=== PATIENT | female | born 1955 | race Caucasian/White ===

== ENCOUNTER → 2017-01-03 | Outpatient (CLI) | payer MEDICARE ==
[~2017-01-03] MED LIST: CLARITIN10 MG PO; DULOXETINE HCL60 MG PO; ELAVIL 50 MG TA50 MG PO; FLEXERIL 10 MG10 MG PO; FLONASE 0.05% N16 GM; HYDROXYZINE HCL25 MG PO; MONTELUKAST SOD10 MG PO; PROAIR HFA8.5 GM INH; TOPAMAX50 MG PO; VITAMIN D5000 UNIT PO
[2017-01-03 09:09] LABS: HEMOGLOBIN 12.7 gm/dl (12.3-15.3); RED BLOOD COUNT 4.16 M/UL (4.00-5.10); WHITE BLOOD COUNT 4.8 K/UL (4.5-11.0)
[2017-01-03 10:06] LABS: BUN/CREATININE RATIO 15 (0-10)
== END ==
LOC: LAB 08:11
PROVIDERS: Family Medicine
DX: Z13.220 Encounter for screening for lipoid disorders (principal); D63.1 Anemia in chronic kidney disease; N18.9 Chronic kidney disease, unspecified; E53.8 Deficiency of other specified B group vitamins; M25.532 Pain in left wrist; M79.671 Pain in right foot
CPT/HCPCS: 36415; 73110; 73630; 80053; 80061; 82607; 82728; 83540; 83550; 85025

== ENCOUNTER → 2017-01-10 | Outpatient (CLI) | payer MEDICARE | LOC: HEART 5 13:24 | DX: I73.9 Peripheral vascular disease, unspecified (principal) ==

== ENCOUNTER 2020-07-18 15:46 | Emergency (ER) | payer MEDICARE, SELFPAY ==
[~2020-07-18 15:46] MED LIST changes: +CLOBETASOL 0.0560 GM TP; +DIFLUCAN 100 M100 MG PO; +DUOBRII 0.01%-100 GM TP; +IBUPROFEN200 M1 PO; +IBUPROFEN600 MG PO; +INVANZ 1 GM VIAL1 GM IV; +KENALOG IN ORABA5 GM TOP; +PRILOSEC OTC20 MG PO; +REXALTI PO; +SERTRALINE HCL100 MG PO; +VIT B12 PO; +VITAMIN D31250 MCG PO; -VITAMIN D5000 UNIT PO; +ZYRTEC10 MG PO
[2020-07-18 20:22] LABS: HEMOGLOBIN 12.6 gm/dl (12.3-15.3); RED BLOOD COUNT 3.97 M/UL (4.00-5.10); WHITE BLOOD COUNT 6.8 K/UL (4.5-11.0)
[2020-07-18 20:38] LABS: BUN/CREATININE RATIO 12 (0-10)
[2020-07-20] MEDS ORDERED: OMEPRAZOLE20 M1 PO (06:51)
[2020-07-20] MEDS ORDERED: REXALTI PO (06:53)
[2020-07-20] MEDS ORDERED: SINGULAIR10 MG PO (06:53)
[2020-07-20] MEDS ORDERED: ZOLOFT100 MG PO (06:54)
[2020-07-20] MEDS ORDERED: NORCO 5-325 TA1 EACH PO (09:45)
[2020-08-03] MEDS ORDERED: HYDROXYZINE HCL25 MG PO (08:26)
[2020-08-03] MEDS ORDERED: CYMBALTA60 MG PO (08:26)
[2020-08-03] MEDS ORDERED: ELAVIL 50 MG TA50 MG PO (08:26)
[2020-08-03] MEDS ORDERED: FLONASE 0.05% N16 GM (08:28)
[2020-08-03] MEDS ORDERED: FLEXERIL PO (08:28)
[2020-08-03] MEDS ORDERED: IBUPROFEN800 MG PO (08:29)
[2020-08-03] MEDS ORDERED: PRILOSEC OTC20 MG PO (08:30)
[2020-08-03] MEDS ORDERED: SINGULAIR10 MG PO (08:31)
[2020-08-03] MEDS ORDERED: REXALTI PO (08:31)
[2020-08-03] MEDS ORDERED: ZOLOFT100 MG PO (08:32)
[2020-08-03] MEDS ORDERED: ZYRTEC10 MG PO (08:32)
[2020-08-03] MEDS ORDERED: VIT B12 SL (08:33)
[2020-08-03] MEDS ORDERED: VITAMIN D21250 MCG PO (08:33)
[2020-08-03] MEDS ORDERED: CLOBETASOL OINT VG (08:34)
[2020-08-03] MEDS ORDERED: HALOBETASOL TP (08:35)
[2020-08-03] MEDS ORDERED: TRIAMCINOLONE OINT TP (08:36)
== END 2020-07-18 22:37 | disposition home or self-care (01) ==
LOC: ER1 15:46
PROVIDERS: Physician Assistant Medical
DX: Z48.817 Encounter for surgical aftercare following surgery on the skin and subcutaneous tissue (principal); J45.909 Unspecified asthma, uncomplicated; Z88.1 Allergy status to other antibiotic agents; Z88.0 Allergy status to penicillin; Z88.2 Allergy status to sulfonamides; Z88.8 Allergy status to other drugs, medicaments and biological substances; Z91.041 Radiographic dye allergy status; Z98.890 Other specified postprocedural states
CPT/HCPCS: 73090; 80053; 85025; 85652; 86140; 99283

== ENCOUNTER → 2020-07-20 | Day surgery (SDC) | payer MEDICARE, SELFPAY ==
[~2020-07-20] MED LIST changes: +CLOBETASOL OINT VG; +CYMBALTA60 MG PO; +FLEXERIL PO; +HALOBETASOL TP; +HYDROCODON-ACE1 EAC2 PO; +IBUPROFEN800 MG PO; +NORCO 5-325 TA1 EACH PO; +OMEPRAZOLE20 M1 PO; +SINGULAIR10 MG PO; +TRIAMCINOLONE OINT TP; +VIT B12 SL; +VITAMIN D21250 MCG PO; +ZOLOFT100 MG PO
== END | disposition home or self-care (01) ==
LOC: OR 06:01
PROVIDERS: Orthopaedic Surgery
PROC: 0PBJ0ZZ Excision of Left Radius, Open Approach (ICD-10-PCS; principal; 2020-07-20 07:30)
DX: T84.613A Infection and inflammatory reaction due to internal fixation device of left radius, initial encounter (principal); I25.10 Atherosclerotic heart disease of native coronary artery without angina pectoris; E66.01 Morbid (severe) obesity due to excess calories; F41.8 Other specified anxiety disorders; Z88.0 Allergy status to penicillin; Z88.2 Allergy status to sulfonamides; Z88.6 Allergy status to analgesic agent; Z91.041 Radiographic dye allergy status; Z88.7 Allergy status to serum and vaccine; Z79.899 Other long term (current) drug therapy; Z20.828 Contact with and (suspected) exposure to other viral communicable diseases
CPT/HCPCS: 82962; 87070; 87077; 87186; 87205; C1713; J1170; J2001; J2250; J2704; J3010; J3260; J7030; J7120

== ENCOUNTER → 2020-08-03 | Day surgery (SDC) | payer MEDICARE, SELFPAY | END | disposition home or self-care (01) | LOC: OR 06:49 | PROVIDERS: Orthopaedic Surgery | PROC: 0RPP04Z Removal of Internal Fixation Device from Left Wrist Joint, Open Approach (ICD-10-PCS; principal; 2020-08-03 07:30) | DX: T84.613A Infection and inflammatory reaction due to internal fixation device of left radius, initial encounter (principal); J45.909 Unspecified asthma, uncomplicated; F41.8 Other specified anxiety disorders; Z88.0 Allergy status to penicillin; Z88.2 Allergy status to sulfonamides; Z88.1 Allergy status to other antibiotic agents; Z88.6 Allergy status to analgesic agent; Z79.899 Other long term (current) drug therapy; Z20.822 Contact with and (suspected) exposure to COVID-19 | CPT/HCPCS: 73110; 76000; 87070; 87077; 87186; 87205; C1713; J0171; J0690; J1100; J1170; J2001; J2370; J2704; J2795; J3260; J3370; J7120 ==

== ENCOUNTER 2020-08-29 17:33 | Emergency (ER) | payer MEDICARE, SELFPAY ==
[~2020-08-29 17:33] MED LIST changes: -HYDROCODON-ACE1 EAC2 PO
[2020-08-29 21:22] LABS: HEMOGLOBIN 13.1 gm/dl (12.3-15.3); RED BLOOD COUNT 4.06 M/UL (4.00-5.10); WHITE BLOOD COUNT 8.1 K/UL (4.5-11.0)
== END 2020-08-29 23:01 | disposition home or self-care (01) ==
LOC: ER1 17:33
PROVIDERS: Emergency Medicine
DX: T81.41XA Infection following a procedure, superficial incisional surgical site, initial encounter (principal); L08.9 Local infection of the skin and subcutaneous tissue, unspecified; L76.32 Postprocedural hematoma of skin and subcutaneous tissue following other procedure; Z88.0 Allergy status to penicillin; Z88.2 Allergy status to sulfonamides; Z88.6 Allergy status to analgesic agent; Z98.890 Other specified postprocedural states
CPT/HCPCS: 36415; 80053; 85025; 85652; 86140; 99283

== ENCOUNTER → 2020-09-15 | Outpatient (CLI) | payer MEDICARE, SELFPAY ==
[~2020-09-15] MED LIST changes: +HYDROCODON-ACE1 EAC2 PO
== END ==
LOC: WCC 13:15
DX: S61.512A Laceration without foreign body of left wrist, initial encounter (principal); L08.9 Local infection of the skin and subcutaneous tissue, unspecified; N18.6 End stage renal disease; D64.9 Anemia, unspecified; J45.909 Unspecified asthma, uncomplicated; Z88.0 Allergy status to penicillin; Z88.2 Allergy status to sulfonamides
CPT/HCPCS: 97608; G0463

== ENCOUNTER → 2020-09-16 | Outpatient (CLI) | payer MEDICARE, SELFPAY | LOC: OPSV 06:35 | DX: T80.218A Other infection due to central venous catheter, initial encounter (principal); M25.832 Other specified joint disorders, left wrist; Z88.0 Allergy status to penicillin; Z88.2 Allergy status to sulfonamides ==

== ENCOUNTER → 2020-09-19 | Outpatient (CLI) | payer MEDICARE, SELFPAY | LOC: WCC 07:56 | DX: T81.31XA Disruption of external operation (surgical) wound, not elsewhere classified, initial encounter (principal); T81.49XA Infection following a procedure, other surgical site, initial encounter; E66.01 Morbid (severe) obesity due to excess calories; N18.6 End stage renal disease; Z91.81 History of falling | CPT/HCPCS: 97605 ==

== ENCOUNTER → 2020-09-22 | Outpatient (CLI) | payer MEDICARE, SELFPAY | LOC: WCC 13:26 | DX: T81.31XA Disruption of external operation (surgical) wound, not elsewhere classified, initial encounter (principal); J45.909 Unspecified asthma, uncomplicated; N18.6 End stage renal disease; E66.01 Morbid (severe) obesity due to excess calories; Z91.81 History of falling | CPT/HCPCS: 87070; 87205 ==

== ENCOUNTER → 2020-09-29 | Outpatient (CLI) | payer MEDICARE, SELFPAY | LOC: WCC 08:30 | PROC: 0KBB0ZZ Excision of Left Lower Arm and Wrist Muscle, Open Approach (ICD-10-PCS; principal; 2020-09-29) | DX: T81.31XA Disruption of external operation (surgical) wound, not elsewhere classified, initial encounter (principal); T81.42XA Infection following a procedure, deep incisional surgical site, initial encounter; I96 Gangrene, not elsewhere classified; N18.6 End stage renal disease; D63.1 Anemia in chronic kidney disease; J45.909 Unspecified asthma, uncomplicated; M19.90 Unspecified osteoarthritis, unspecified site; M86.9 Osteomyelitis, unspecified; E66.01 Morbid (severe) obesity due to excess calories; Z68.41 Body mass index [BMI] 40.0-44.9, adult; Z87.81 Personal history of (healed) traumatic fracture; Z79.899 Other long term (current) drug therapy; Z91.81 History of falling; Z88.0 Allergy status to penicillin; Z88.2 Allergy status to sulfonamides; Z88.8 Allergy status to other drugs, medicaments and biological substances; Z91.041 Radiographic dye allergy status; Y83.8 Other surgical procedures as the cause of abnormal reaction of the patient, or of later complication, without mention of misadventure at the time of the procedure; Z92.3 Personal history of irradiation | CPT/HCPCS: G0463 ==

== ENCOUNTER → 2020-09-30 | Outpatient (CLI) | payer MEDICARE, SELFPAY | LOC: WCC 09:27 | DX: T81.31XA Disruption of external operation (surgical) wound, not elsewhere classified, initial encounter (principal); T81.49XA Infection following a procedure, other surgical site, initial encounter; E66.01 Morbid (severe) obesity due to excess calories; N18.6 End stage renal disease; Z91.81 History of falling | CPT/HCPCS: 97608 ==

== ENCOUNTER → 2020-10-03 | Outpatient (CLI) | payer MEDICARE, SELFPAY | LOC: WCC 14:09 | DX: T81.31XA Disruption of external operation (surgical) wound, not elsewhere classified, initial encounter (principal); T81.49XA Infection following a procedure, other surgical site, initial encounter; N18.6 End stage renal disease; E66.01 Morbid (severe) obesity due to excess calories; Z91.81 History of falling | CPT/HCPCS: 97605 ==

== ENCOUNTER → 2020-10-06 | Outpatient (CLI) | payer MEDICARE, SELFPAY, OTHER | LOC: WCC 14:00 | PROC: 0KBB0ZZ Excision of Left Lower Arm and Wrist Muscle, Open Approach (ICD-10-PCS; principal; 2020-10-06) | DX: T81.31XA Disruption of external operation (surgical) wound, not elsewhere classified, initial encounter (principal); T81.49XA Infection following a procedure, other surgical site, initial encounter; I96 Gangrene, not elsewhere classified; D63.1 Anemia in chronic kidney disease; J45.909 Unspecified asthma, uncomplicated; N18.6 End stage renal disease; E66.01 Morbid (severe) obesity due to excess calories; Z68.41 Body mass index [BMI] 40.0-44.9, adult; Z91.81 History of falling; Z88.0 Allergy status to penicillin; Z88.2 Allergy status to sulfonamides; Z88.8 Allergy status to other drugs, medicaments and biological substances; Z91.041 Radiographic dye allergy status; Z79.899 Other long term (current) drug therapy; Y83.8 Other surgical procedures as the cause of abnormal reaction of the patient, or of later complication, without mention of misadventure at the time of the procedure | CPT/HCPCS: 97605 ==

== ENCOUNTER → 2020-10-10 | Outpatient (CLI) | payer MEDICARE, SELFPAY | LOC: WCC 13:23 | DX: T81.31XA Disruption of external operation (surgical) wound, not elsewhere classified, initial encounter (principal); Y84.9 Medical procedure, unspecified as the cause of abnormal reaction of the patient, or of later complication, without mention of misadventure at the time of the procedure | CPT/HCPCS: 97605 ==

== ENCOUNTER → 2020-10-13 | Outpatient (CLI) | payer MEDICARE, SELFPAY, OTHER | LOC: WCC 13:53 | PROC: 0KBB0ZZ Excision of Left Lower Arm and Wrist Muscle, Open Approach (ICD-10-PCS; principal; 2020-10-13) | DX: T81.31XA Disruption of external operation (surgical) wound, not elsewhere classified, initial encounter (principal); T81.49XA Infection following a procedure, other surgical site, initial encounter; I96 Gangrene, not elsewhere classified; N18.6 End stage renal disease; D63.1 Anemia in chronic kidney disease; J45.909 Unspecified asthma, uncomplicated; M19.90 Unspecified osteoarthritis, unspecified site; E66.01 Morbid (severe) obesity due to excess calories; Z68.42 Body mass index [BMI] 45.0-49.9, adult; Z79.899 Other long term (current) drug therapy; Z88.0 Allergy status to penicillin; Z88.2 Allergy status to sulfonamides; Z88.8 Allergy status to other drugs, medicaments and biological substances; Z91.041 Radiographic dye allergy status; Y83.8 Other surgical procedures as the cause of abnormal reaction of the patient, or of later complication, without mention of misadventure at the time of the procedure | CPT/HCPCS: A6212 ==

== ENCOUNTER → 2020-10-17 | Outpatient (CLI) | payer MEDICARE, SELFPAY ==
[2020-10-17 13:49] LABS: HEMOGLOBIN 13.1 gm/dl (12.3-15.3); RED BLOOD COUNT 4.16 M/UL (4.00-5.10); WHITE BLOOD COUNT 7.8 K/UL (4.5-11.0)
== END ==
LOC: OPSV2 11:59
PROVIDERS: Orthopaedic Surgery
DX: Z01.818 Encounter for other preprocedural examination (principal); M86.9 Osteomyelitis, unspecified; T81.30XA Disruption of wound, unspecified, initial encounter; Z20.822 Contact with and (suspected) exposure to COVID-19
CPT/HCPCS: 36415; 80048; 85025; 85652; 86140; 93005; U0003

== ENCOUNTER 2020-10-19 07:39 | Day surgery (SDC) | payer MEDICARE, SELFPAY ==
[~2020-10-19] VITALS: Ht 160 cm; Wt 105.7 kg
[~2020-10-19 07:39] MED LIST changes: -HYDROCODON-ACE1 EAC2 PO
[2020-10-19] MEDS ORDERED: HYDROCODON-ACE1 EAC2 PO (14:16)
--- NOTE | 2020-10-19 17:48 | NUR ---
PATIENT HAVING DIFFICULTY WITH ANBULATON, USING WALKER. AT BEDSIDE.
[2020-10-20 02:32] LABS: HEMOGLOBIN 11.9 gm/dl (12.3-15.3); RED BLOOD COUNT 3.83 M/UL (4.00-5.10)
[2020-10-20 02:33] LABS: WHITE BLOOD COUNT 5.8 K/UL (4.5-11.0)
[2020-10-20 02:52] LABS: BUN/CREATININE RATIO 14 (0-10)
== END 2020-10-20 13:30 | disposition home health service (06) ==
LOC: M/S 07:39 → OR 07:39 → M/S 15:03 → OR 10-20 13:30
PROVIDERS: Orthopaedic Surgery
DX: S61.502A Unspecified open wound of left wrist, initial encounter (principal); M86.632 Other chronic osteomyelitis, left radius and ulna; T85.79XA Infection and inflammatory reaction due to other internal prosthetic devices, implants and grafts, initial encounter; J45.909 Unspecified asthma, uncomplicated; N28.9 Disorder of kidney and ureter, unspecified; X58.XXXA Exposure to other specified factors, initial encounter
CPT/HCPCS: 80048; 85025; 87070; J0592; J1100; J1335; J2001; J2405; J2704; J2795; J3010; J7120; Q0177

== ENCOUNTER → 2020-11-10 | Outpatient (CLI) | payer MEDICARE ==
[~2020-11-10] MED LIST changes: +HYDROCODON-ACE1 EAC2 PO
== END ==
LOC: OPSV 10:21
DX: M86.642 Other chronic osteomyelitis, left hand (principal); Z46.82 Encounter for fitting and adjustment of non-vascular catheter
CPT/HCPCS: G0463

== ENCOUNTER → 2021-01-05 | Outpatient (CLI) | payer MEDICARE | LOC: LAB 11:51 | PROVIDERS: Family Medicine | DX: E55.9 Vitamin D deficiency, unspecified (principal); E53.8 Deficiency of other specified B group vitamins; N18.30 Chronic kidney disease, stage 3 unspecified | CPT/HCPCS: 36415; 80053; 82607; 83735; 84100 ==

== ENCOUNTER → 2021-01-20 | Outpatient (CLI) | payer MEDICARE ==
[~2021-01-20] MED LIST changes: +ASPIRIN CHEWABL81 MG PO; +DECADRON6 MG PO; +IBU800 MG PO
[2021-01-20 10:53] LABS: HEMOGLOBIN 14.6 gm/dl (12.3-15.3); RED BLOOD COUNT 4.62 M/UL (4.00-5.10); WHITE BLOOD COUNT 5.5 K/UL (4.5-11.0)
[2021-01-24 23:10] LABS: TOTAL (AMI+NOR) 65 ng/mL (80-200)
== END ==
LOC: LAB 09:35
PROVIDERS: Psychiatry & Neurology Psychiatry
DX: F33.1 Major depressive disorder, recurrent, moderate (principal); F41.9 Anxiety disorder, unspecified
CPT/HCPCS: 36415; 80076; 85027; 93005; G0480

== ENCOUNTER → 2021-02-01 | Outpatient (CLI) | payer MEDICARE, OTHER ==
[~2021-02-01] VITALS: Ht 157.5 cm; Wt 106.6 kg
== END ==
LOC: OPSV 08:10
DX: M81.0 Age-related osteoporosis without current pathological fracture (principal)
CPT/HCPCS: 96372

== ENCOUNTER → 2021-02-13 | Day surgery (SDC) | payer MEDICARE, OTHER | END | disposition home or self-care (01) | LOC: OR 06:10 | DX: D12.5 Benign neoplasm of sigmoid colon (principal); K29.70 Gastritis, unspecified, without bleeding; D50.9 Iron deficiency anemia, unspecified; N18.30 Chronic kidney disease, stage 3 unspecified; G43.009 Migraine without aura, not intractable, without status migrainosus; J45.991 Cough variant asthma; F32.9 Major depressive disorder, single episode, unspecified; F41.9 Anxiety disorder, unspecified; K21.9 Gastro-esophageal reflux disease without esophagitis; G47.33 Obstructive sleep apnea (adult) (pediatric); M81.0 Age-related osteoporosis without current pathological fracture; I73.9 Peripheral vascular disease, unspecified; Z88.6 Allergy status to analgesic agent; Z88.5 Allergy status to narcotic agent; Z88.0 Allergy status to penicillin; Z88.1 Allergy status to other antibiotic agents; Z88.2 Allergy status to sulfonamides; Z88.8 Allergy status to other drugs, medicaments and biological substances; Z20.822 Contact with and (suspected) exposure to COVID-19 | CPT/HCPCS: J2704; J7120 ==

== ENCOUNTER → 2021-02-14 | Outpatient (CLI) | payer MEDICARE ==
[2021-02-14 12:27] LABS: HEMOGLOBIN 13.8 gm/dl (12.3-15.3); RED BLOOD COUNT 4.37 M/UL (4.00-5.10); WHITE BLOOD COUNT 6.3 K/UL (4.5-11.0)
== END ==
LOC: LAB 11:06
PROVIDERS: Orthopaedic Surgery
DX: T85.79XA Infection and inflammatory reaction due to other internal prosthetic devices, implants and grafts, initial encounter (principal)
CPT/HCPCS: 36415; 85027; 85652; 86140

== ENCOUNTER → 2021-02-20 | Outpatient (CLI) | payer MEDICARE, OTHER | LOC: MAMO 02-13 15:00 | DX: Z12.31 Encounter for screening mammogram for malignant neoplasm of breast (principal) | CPT/HCPCS: 77063; 77067 ==

== ENCOUNTER → 2021-02-21 | Outpatient (CLI) | payer MEDICARE, OTHER | LOC: KOH-I 10:19 | DX: M25.571 Pain in right ankle and joints of right foot (principal) | CPT/HCPCS: 73610 ==

== ENCOUNTER → 2021-03-08 | Outpatient (CLI) | payer MEDICARE, OTHER | LOC: KOH-I 02-27 10:30 | DX: S82.54XA Nondisplaced fracture of medial malleolus of right tibia, initial encounter for closed fracture (principal) | CPT/HCPCS: 73700 ==

== ENCOUNTER → 2021-03-29 | Outpatient (CLI) | payer MEDICARE ==
[~2021-03-29] MED LIST changes: -ASPIRIN CHEWABL81 MG PO; -DECADRON6 MG PO
== END ==
LOC: OPSV 12:02
DX: M81.0 Age-related osteoporosis without current pathological fracture (principal)
CPT/HCPCS: G0463

== ENCOUNTER 2021-04-11 20:48 | Emergency (ER) | payer MEDICARE, OTHER ==
[2021-04-11 21:46] LABS: HEMOGLOBIN 15.9 gm/dl (12.3-15.3); RED BLOOD COUNT 5.09 M/UL (4.00-5.10); WHITE BLOOD COUNT 5.3 K/UL (4.5-11.0)
[2021-04-12] MEDS ORDERED: DECADRON6 MG PO (04:53)
[2021-04-12] MEDS ORDERED: ASPIRIN CHEWABL81 MG PO (04:53)
== END 2021-04-12 05:20 | disposition home or self-care (01) ==
LOC: ER1 20:48
PROVIDERS: Student in an Organized Health Care Education/Training Program
DX: U07.1 COVID-19 (principal); J12.82 Pneumonia due to coronavirus disease 2019; Z23 Encounter for immunization
CPT/HCPCS: 71045; 80053; 81001; 82550; 82553; 83605; 83735; 83874; 84100; 84484; 85025; 85379; 85652; 86140; 87040; 87086; 93005; 96374; 99285; J1956; M0243; Q9967; U0002

== ENCOUNTER 2021-05-01 20:07 | Observation (INO) | payer MEDICARE, OTHER ==
[~2021-05-01] VITALS: Ht 157.5 cm; Wt 103.9 kg
[~2021-05-01 20:07] MED LIST changes: -OMNICEF 300 MG300 MG PO
[2021-05-01 21:40] LABS: HEMOGLOBIN 14.3 gm/dl (12.3-15.3); RED BLOOD COUNT 4.58 M/UL (4.00-5.10)
[2021-05-01 21:44] LABS: WHITE BLOOD COUNT 8.2 K/UL (4.5-11.0)
--- NOTE | 2021-05-02 21:15 | NUR ---
PULLED PTS MEDS EARLY GETTING NEW ADMIT
[2021-05-03] MEDS ORDERED: OMNICEF 300 MG300 MG PO (10:33)
== END 2021-05-03 17:50 | disposition home or self-care (01) ==
LOC: ER1 20:07 → MED SURG 4 22:26 → CDU 22:26 → MED SURG 4 05-02 00:35
PROVIDERS: Internal Medicine; Physician Assistant Medical; ADMIT Internal Medicine
DX: J15.9 Unspecified bacterial pneumonia (principal); U09.9 Post COVID-19 condition, unspecified; E86.0 Dehydration; Z98.84 Bariatric surgery status; E66.9 Obesity, unspecified; I95.1 Orthostatic hypotension; Z20.822 Contact with and (suspected) exposure to COVID-19
CPT/HCPCS: 36415; 71045; 71250; 80053; 82533; 82550; 82553; 82728; 83874; 84439; 84443; 84484; 85025; 86140; 93005; 96374; 96375; 96376; 99285; G0378; J0696; J2405; J7030; U0002

== ENCOUNTER → 2021-05-01 | Outpatient (CLI) | payer MEDICARE ==
[~2021-05-01] MED LIST changes: +ASPIRIN CHEWABL81 MG PO; +DECADRON6 MG PO; +OMNICEF 300 MG300 MG PO
[2021-05-01 10:05] LABS: RED BLOOD COUNT 4.52 M/UL (4.00-5.10); WHITE BLOOD COUNT 5.1 K/UL (4.5-11.0)
== END ==
LOC: LAB 09:06
PROVIDERS: Family Medicine
DX: U07.1 COVID-19 (principal); Z13.220 Encounter for screening for lipoid disorders; E55.9 Vitamin D deficiency, unspecified; N18.9 Chronic kidney disease, unspecified; R79.89 Other specified abnormal findings of blood chemistry; R73.9 Hyperglycemia, unspecified
CPT/HCPCS: 36415; 71046; 80053; 80061; 82607; 84439; 84443; 85027

== ENCOUNTER 2021-05-11 09:34 | Emergency (ER) | payer MEDICARE, OTHER ==
[~2021-05-11 09:34] MED LIST changes: +OMNICEF 300 MG300 MG PO
[2021-05-11 10:30] LABS: HEMOGLOBIN 14.4 gm/dl (12.3-15.3); RED BLOOD COUNT 4.56 M/UL (4.00-5.10); WHITE BLOOD COUNT 5.9 K/UL (4.5-11.0)
[2021-05-11 11:06] LABS: BUN/CREATININE RATIO 14 (0-10)
[2021-05-11] MEDS ORDERED: PREDNISONE 50 M50 MG PO (15:13)
[2021-05-11] MEDS ORDERED: DOXYCYCLINE HY100 MG PO (15:13)
== END 2021-05-11 15:21 | disposition home or self-care (01) ==
LOC: ER1 09:34
PROVIDERS: Emergency Medicine
DX: U07.1 COVID-19 (principal); J12.82 Pneumonia due to coronavirus disease 2019; J45.909 Unspecified asthma, uncomplicated; E11.9 Type 2 diabetes mellitus without complications; I50.9 Heart failure, unspecified; Z87.442 Personal history of urinary calculi
CPT/HCPCS: 71046; 80053; 84484; 85025; 85610; 85730; 86140; 93005; 96374; 96375; 99285; J1200; J2930; Q9967

== ENCOUNTER → 2021-07-26 | Outpatient (CLI) | payer OTHER ==
[~2021-07-26] MED LIST changes: +DOXYCYCLINE HY100 MG PO; +PREDNISONE 50 M50 MG PO
== END ==
LOC: RAD 08:44
DX: R07.81 Pleurodynia (principal); S22.32XA Fracture of one rib, left side, initial encounter for closed fracture
CPT/HCPCS: 71101

== ENCOUNTER → 2021-08-22 | Outpatient (CLI) | payer OTHER ==
[~2021-08-22] VITALS: Ht 157.5 cm; Wt 106.6 kg
== END ==
LOC: OPSV 08-10 09:00
DX: M81.0 Age-related osteoporosis without current pathological fracture (principal)
CPT/HCPCS: 96372

== ENCOUNTER 2021-11-02 12:08 | Emergency (ER) | payer OTHER ==
[2021-11-02 13:46] LABS: HEMOGLOBIN 14.1 gm/dl (12.3-15.3); RED BLOOD COUNT 4.41 M/UL (4.00-5.10); WHITE BLOOD COUNT 6.7 K/UL (4.5-11.0)
[2021-11-02 14:09] LABS: BUN/CREATININE RATIO 13 (0-10)
== END 2021-11-02 17:45 | disposition home or self-care (01) ==
LOC: ER1 12:08
PROVIDERS: Physician Assistant
DX: R07.89 Other chest pain (principal); I10 Essential (primary) hypertension; E78.5 Hyperlipidemia, unspecified; Z87.442 Personal history of urinary calculi; Z88.0 Allergy status to penicillin; Z88.2 Allergy status to sulfonamides; Z88.6 Allergy status to analgesic agent; Z88.8 Allergy status to other drugs, medicaments and biological substances
CPT/HCPCS: 71045; 80053; 81001; 82550; 82553; 84484; 85025; 93005; 96374; 96375; 99285; J1200; J2930; J7030; Q9967

== ENCOUNTER → 2021-11-28 | Outpatient (CLI) | payer OTHER | LOC: ECHO 08:30 → NM 10:00 | DX: R07.9 Chest pain, unspecified (principal); R06.02 Shortness of breath; I07.1 Rheumatic tricuspid insufficiency | CPT/HCPCS: ECHO; 78452; 93017; 93306; A9502; J2785 ==

== ENCOUNTER 2021-12-10 12:30 | Emergency (ER) | payer OTHER ==
[2021-12-10 14:40] LABS: HEMOGLOBIN 15.2 gm/dl (12.3-15.3); RED BLOOD COUNT 3.71 M/UL (4.00-5.10); WHITE BLOOD COUNT 5.6 K/UL (4.5-11.0)
[2021-12-10 15:02] LABS: BUN/CREATININE RATIO 19 (0-10)
== END 2021-12-10 16:16 | disposition home or self-care (01) ==
LOC: ER1 12:30
PROVIDERS: Emergency Medicine
DX: R55 Syncope and collapse (principal); W19.XXXA Unspecified fall, initial encounter
CPT/HCPCS: 70450; 80053; 83880; 84484; 85025; 93005; 99284

== ENCOUNTER → 2021-12-28 | Outpatient (CLI) | payer OTHER ==
[2021-12-28 12:52] LABS: HEMOGLOBIN 13.9 gm/dl (12.3-15.3); RED BLOOD COUNT 4.31 M/UL (4.00-5.10); WHITE BLOOD COUNT 6.6 K/UL (4.5-11.0)
[2021-12-28 13:12] LABS: BUN/CREATININE RATIO 14 (0-10)
== END ==
LOC: LAB 11:55
PROVIDERS: Family Medicine
DX: E78.5 Hyperlipidemia, unspecified (principal); E53.8 Deficiency of other specified B group vitamins; E55.9 Vitamin D deficiency, unspecified; M81.0 Age-related osteoporosis without current pathological fracture; K21.9 Gastro-esophageal reflux disease without esophagitis
CPT/HCPCS: 36415; 80053; 80061; 82607; 83735; 85027

== ENCOUNTER → 2022-01-08 | Day surgery (SDC) | payer OTHER ==
[~2022-01-08] MED LIST changes: +ALBUTEROL2.5 MG/3 M INH; +BREO ELLIPTA 21 EACH INH; +PROLIA INJ60 MG/1 ML SC
== END | disposition home or self-care (01) ==
LOC: OR 06:32
DX: Z12.11 Encounter for screening for malignant neoplasm of colon (principal); J45.909 Unspecified asthma, uncomplicated; N18.30 Chronic kidney disease, stage 3 unspecified; K21.9 Gastro-esophageal reflux disease without esophagitis; E78.5 Hyperlipidemia, unspecified; G47.33 Obstructive sleep apnea (adult) (pediatric); M81.0 Age-related osteoporosis without current pathological fracture; I73.9 Peripheral vascular disease, unspecified; Z88.0 Allergy status to penicillin; Z88.2 Allergy status to sulfonamides; Z79.899 Other long term (current) drug therapy
CPT/HCPCS: J2704

== ENCOUNTER → 2022-01-18 | Outpatient (CLI) | payer OTHER | LOC: EXRD 01-11 11:30 | DX: M81.0 Age-related osteoporosis without current pathological fracture (principal); M85.88 Other specified disorders of bone density and structure, other site | CPT/HCPCS: 77080 ==

== ENCOUNTER 2022-02-02 15:00 | Emergency (ER) | payer OTHER ==
[2022-02-02 15:59] LABS: HEMOGLOBIN 14.5 gm/dl (12.3-15.3); RED BLOOD COUNT 4.57 M/UL (4.00-5.10)
[2022-02-02 16:14] LABS: BUN/CREATININE RATIO 14 (0-10)
[2022-02-02] MEDS ORDERED: ANTIVERT25 M1 PO (20:35)
== END 2022-02-02 20:45 | disposition home or self-care (01) ==
LOC: ER1 15:00
DX: R42 Dizziness and giddiness (principal); K21.9 Gastro-esophageal reflux disease without esophagitis; Z91.041 Radiographic dye allergy status
CPT/HCPCS: 70450; 71045; 80053; 82550; 82553; 83605; 84484; 85025; 93005; 99284

== ENCOUNTER 2022-02-07 18:15 | Emergency (ER) | payer OTHER ==
[~2022-02-07 18:15] MED LIST changes: +ANTIVERT25 M1 PO
[2022-02-07] MEDS ORDERED: HYDROCODON-ACE1 EAC4 PO (20:03)
== END 2022-02-07 20:25 | disposition home or self-care (01) ==
LOC: ER1 18:15
DX: S92.352A Displaced fracture of fifth metatarsal bone, left foot, initial encounter for closed fracture (principal); I25.10 Atherosclerotic heart disease of native coronary artery without angina pectoris; I50.9 Heart failure, unspecified; E11.9 Type 2 diabetes mellitus without complications; W19.XXXA Unspecified fall, initial encounter; Y92.009 Unspecified place in unspecified non-institutional (private) residence as the place of occurrence of the external cause
CPT/HCPCS: 73502; 73560; 73600; 73620; 99283

== ENCOUNTER → 2022-03-01 | Outpatient (CLI) | payer OTHER ==
[~2022-03-01] MED LIST changes: +HYDROCODON-ACE1 EAC4 PO
== END ==
LOC: KOH-I 08:55
DX: S92.352D Displaced fracture of fifth metatarsal bone, left foot, subsequent encounter for fracture with routine healing (principal); S92.002A Unspecified fracture of left calcaneus, initial encounter for closed fracture; X58.XXXD Exposure to other specified factors, subsequent encounter
CPT/HCPCS: 73630; 73650

== ENCOUNTER → 2022-03-20 | Outpatient (CLI) | payer OTHER | LOC: LAB 08:10 | DX: Z20.822 Contact with and (suspected) exposure to COVID-19 (principal) | CPT/HCPCS: U0002 ==

== ENCOUNTER → 2022-03-22 | Outpatient (CLI) | payer OTHER | LOC: KOH-I 09:27 | DX: S92.352D Displaced fracture of fifth metatarsal bone, left foot, subsequent encounter for fracture with routine healing (principal) | CPT/HCPCS: 73630 ==

== ENCOUNTER → 2022-03-23 | Outpatient (CLI) | payer OTHER | LOC: CATH 03-02 10:00 | DX: R42 Dizziness and giddiness (principal); I95.1 Orthostatic hypotension ==

== ENCOUNTER → 2022-03-29 | Outpatient (CLI) | payer OTHER | LOC: OPSV 02-19 09:00 | DX: M81.0 Age-related osteoporosis without current pathological fracture (principal) | CPT/HCPCS: 96372 ==